=== PATIENT | male | born 1980 ===

== ENCOUNTER 2024-03-26 15:58 | Inpatient (IN) | payer MEDICAID ==
[~2024-03-26] VITALS: Ht 167.6 cm; Wt 112.0 kg
[2024-03-26] MEDS ORDERED: VANCOMYCIN 1GM 200ML H20 (PEG) 200 ML IV ONE (16:40)
[2024-03-26 16:42] LABS: EOSINOPHILS # (AUTO) 0.1 X10'3 (0-0.9); EOSINOPHILS % (AUTO) 1.1 % (0-6); HEMATOCRIT 48.2 % (42.0-52.0); HEMOGLOBIN 15.3 g/dl (14.0-17.9); LYMPHOCYTES # (AUTO) 0.5 X10'3 (1.1-4.8); LYMPHOCYTES % (AUTO) 10.1 % (21-51); MEAN CORPUSCULAR HEMOGLOBIN 30.5 PG (27.0-31.0); MEAN CORPUSCULAR HGB CONC 31.8 g/dL (33.0-36.5); MEAN CORPUSCULAR VOLUME 95.8 FL (78-98); MEAN PLATELET VOLUME 7.6 FL (7.4-10.4); MONOCYTES # (AUTO) 0.5 X10'3 (0-0.9); MONOCYTES % (AUTO) 9.7 % (2-12); NEUTROPHILS # (AUTO) 3.8 X10'3 (1.8-7.7); NEUTROPHILS % (AUTO) 78.1 % (42-75); PLATELET COUNT 178 X10'3 (140-440); RED BLOOD COUNT 5.03 X10'6 (4.70-6.10); RED CELL DISTRIBUTION WIDTH 17.9 % (11.5-14.5); WHITE BLOOD COUNT 4.9 X10'3 (4.5-11.0)
[2024-03-26 16:58] LABS: APTT 27 SECONDS (22-32); D-DIMER 1.42 MG/L FEU (0-0.50); INR 1.3 INR; PROTHROMBIN TIME 13.5 SECONDS (9.0-12.0)
[2024-03-26] MEDS: vancomycin/NS 1 GM ADD-VANTAGE 250 ML X 1 DOSE IV ONE (17:03)
[2024-03-26] MEDS: normal saline 1000ML IV soln IVB ONE (17:03)
[2024-03-26 17:09] LABS: ALANINE AMINOTRANSFERASE 19 U/L (12-78); ALBUMIN/GLOBULIN RATIO 0.6 (1.1-1.5); ALKALINE PHOSPHATASE 60 IU/L (46-116); ANION GAP 5 (8-16); ASPARTATE AMINO TRANSFERASE 28 U/L (10-37); BILIRUBIN,TOTAL 1.2 MG/DL (0.1-1.0); BLOOD UREA NITROGEN 17 MG/DL (7-18); BUN/CREATININE RATIO 12.9 (10.0-20.0); CALCIUM 8.4 MG/DL (8.5-10.1); CHLORIDE 101 MMOL/L (99-107); CREATININE 1.32 MG/DL (0.60-1.10); GLUCOSE 114 MG/DL (70-104); POTASSIUM 4.6 MMOL/L (3.5-5.1); SODIUM 139 MMOL/L (135-145); TOTAL CARBON DIOXIDE 32.7 MMOL/L (24-32); TOTAL PROTEIN 8.3 G/DL (6.4-8.2); eCRCL 66 ML/MIN; eGFR 59 ML/MIN
[2024-03-26] MEDS ORDERED: iohexol 300mg/ml 100ml inj. ONE (17:14)
[2024-03-26 17:17] LABS: C-REACTIVE PROTEIN 3.49 MG/DL (0.0-0.5); CREATINE KINASE 125 U/L (39-308); LIPASE 142 U/L (16-77); MAGNESIUM 2.2 MG/DL (1.5-2.4); PRO BRAIN NATRIURETIC PEPTIDE 530 PG/ML (0-125)
[2024-03-26 18:03] LABS: ABG BASE EXCESS -3.5 mmol/L (-2.0-3.0); ABG HCO3 24.2 mmol/L (21.0-28.0); ABG OXYGEN SATURATION 91.3 % (94.0-98.0); ABG PCO2 (T) 53.4 mmHg (35.0-48.0); ABG PH (T) 7.273 (7.350-7.450); ABG PO2 (T) 67.7 mmHg (83.0-108.0); ALLEN'S TEST POSITIVE; FCOHb 1.8 % (0.5-1.5); FHHb 8.5 % (0.0-5.0); FLOW 6 L/min; FMetHb 0.1 % (0.0-1.5); FO2Hb 89.6 % (94.0-98.0); MODE MASK - SIMPLE; PATIENT TEMPERATURE 36.8; TOTAL HEMOGLOBIN 15.6 G/dl (13.5-17.5)
[2024-03-26] MEDS: CefTRIAXone 2gm/D5W 50ml BAG 50 ML IV ONE (19:32)
[2024-03-26] MEDS ORDERED: mag hydrox/Alum hydrox/simeth 30ml oral suspension PO PRN (19:50)
[2024-03-26] MEDS ORDERED: potassium Cl 40MEQ/1/2NS 520ml 520 ML IV PRN (19:50)
[2024-03-26] MEDS ORDERED: magnesium sulf-water 4G/100mL 100 ML IV PRN (19:50)
[2024-03-26] MEDS ORDERED: magnesium sulf-water 2g/50mL 50 ML IV PRN (19:50)
[2024-03-26] MEDS ORDERED: magnesium hydroxide 30ml (MOM) UD suspension PO PRN (19:50)
[2024-03-26] MEDS ORDERED: magnesium Cl slow-release 64mg tablet PO PRN (19:50)
[2024-03-26] MEDS ORDERED: potassium Cl 20 mEq SR tablet PO PRN ×2 (19:50)
[2024-03-26] MEDS ORDERED: ondansetron/PF 4mg/2ml inj IV PRN (19:50)
[2024-03-26] MEDS: K and/or MAG REPLACEMENT MC SCH (20:00)
[2024-03-26] MEDS ORDERED: ipratropium/albuterol 3ml nebule NEB PRN (20:00)
[2024-03-26] MEDS: furosemide 10 MG/1 ML 10ml inj IV SCH (20:00)
[2024-03-26] MEDS: docusate sod 100mg capsule PO SCH (20:00)
[2024-03-26 20:15] LABS: HEMOGLOBIN A1C 5.7 % (4.5-6.2)
[2024-03-26] MEDS: heparin, porcine 5000 units/ml vial SQ SCH (21:34)
[2024-03-26 23:15] LABS: BILIRUBIN,URINE NEGATIVE (Neg); CLARITY,URINE CLEAR (Clear); COLOR,URINE YELLOW (Yellow); GLUCOSE, URINE NEGATIVE (Neg); KETONES,URINE NEGATIVE (Neg); LEUKOCYTE ESTERASE ,URINE NEGATIVE (Neg); NITRITES, URINE NEGATIVE (Neg); OCCULT BLOOD,URINE TRACE-INTACT (Neg); PH,URINE 5.5 (4.8-8.0); PROTEIN,URINE NEGATIVE (Neg); UROBILINOGEN,URINE 0.2 E.U/dL (0.2-1.0)
[2024-03-26 23:21] LABS: UA COLLECTION TYPE STRAIGHT CATH
[2024-03-26 23:24] LABS: BACTERIA,URINE FEW /HPF (Neg); RBC,URINE 0-2 /HPF (0-2); SQUAMOUS EPITHELIAL CELL,UR FEW /LPF (FEW); WBC,URINE 0-4 /HPF (0-4)
[2024-03-26] MEDS ORDERED: DEXTROSE 15 GM of carb/4 tabs (each vial/BOTTLE has 4 tablets) PO PRN ×2 (23:25)
[2024-03-26] MEDS ORDERED: glucagon, human recombinant 1mg kit SUBCUT PRN (23:25)
[2024-03-26] MEDS ORDERED: dextrose 50%-water 50ml dispensing syringe IV PRN (23:25)
[2024-03-27] VITALS (17 sets, daily range): BP systolic 88–112; BP diastolic 44–61; PULSE 70–96; RESP 16–26; TEMP 97.2–98; O2SAT 93–99
[2024-03-27] MEDS: azithromycin/NS 500mg/250ml 250 ML IV SCH (00:22)
[2024-03-27] MEDS: LORazepam 2 mg/ml vial IV ONE (01:45)
[2024-03-27] MEDS ORDERED: LORazepam 2 mg/ml vial IV PRN (05:30)
[2024-03-27] MEDS: LORazepam 2 mg/ml vial IV PRN (06:36)
[2024-03-27] MEDS: VANCOMYCIN/WATER FOR INJ (PEG) 1.25GM/250 ML IVPB IV ONE (06:56)
[2024-03-27] MEDS: INSULIN LISPRO 100 UNIT/ML INSULN.PEN MULTI-DOSE SQ SCH ×2 (07:00→09:00)
[2024-03-27 07:36] LABS: BASOPHILS % (AUTO) 0.7 % (0-1); EOSINOPHILS % (AUTO) 0.2 % (0-6); HEMOGLOBIN 14.4 g/dl (14.0-17.9); LYMPHOCYTES # (AUTO) 0.4 X10'3 (1.1-4.8); LYMPHOCYTES % (AUTO) 6.8 % (21-51); MEAN CORPUSCULAR HEMOGLOBIN 30.9 PG (27.0-31.0); MEAN CORPUSCULAR HGB CONC 31.9 g/dL (33.0-36.5); MEAN CORPUSCULAR VOLUME 96.8 FL (78-98); MEAN PLATELET VOLUME 7.2 FL (7.4-10.4); MONOCYTES # (AUTO) 0.5 X10'3 (0-0.9); MONOCYTES % (AUTO) 8.2 % (2-12); NEUTROPHILS # (AUTO) 5.4 X10'3 (1.8-7.7); NEUTROPHILS % (AUTO) 84.1 % (42-75); PLATELET COUNT 170 X10'3 (140-440); RED BLOOD COUNT 4.65 X10'6 (4.70-6.10); RED CELL DISTRIBUTION WIDTH 17.8 % (11.5-14.5); WHITE BLOOD COUNT 6.4 X10'3 (4.5-11.0)
[2024-03-27 08:05] LABS: ABG BASE EXCESS -2.7 mmol/L (-2.0-3.0); ABG HCO3 27.7 mmol/L (21.0-28.0); ABG OXYGEN SATURATION 91.9 % (94.0-98.0); ABG PH (T) 7.185 (7.350-7.450); ABG PO2 (T) 70.9 mmHg (83.0-108.0); ALLEN'S TEST POSITIVE; FCOHb 1.6 % (0.5-1.5); FMetHb 0.1 % (0.0-1.5); FO2Hb 90.3 % (94.0-98.0); MODE MASK - BIPAP; RESPIRATORY RATE 16 b/min; TOTAL HEMOGLOBIN 15.3 G/dl (13.5-17.5)
[2024-03-27 08:15] LABS: ALANINE AMINOTRANSFERASE 14 U/L (12-78); ALBUMIN 2.5 G/DL (3.4-5.0); ALBUMIN/GLOBULIN RATIO 0.5 (1.1-1.5); ALKALINE PHOSPHATASE 54 IU/L (46-116); ANION GAP 2 (8-16); ASPARTATE AMINO TRANSFERASE 28 U/L (10-37); BILIRUBIN,TOTAL 0.8 MG/DL (0.1-1.0); BLOOD UREA NITROGEN 14 MG/DL (7-18); BUN/CREATININE RATIO 9.7 (10.0-20.0); CALCIUM 7.9 MG/DL (8.5-10.1); CHLORIDE 104 MMOL/L (99-107); CHOLESTEROL 106 MG/DL (0-200); CREATININE 1.45 MG/DL (0.60-1.10); GLUCOSE 94 MG/DL (70-104); LDL CHOLESTEROL 69 MG/DL (50-100); POTASSIUM 4.6 MMOL/L (3.5-5.1); SODIUM 140 MMOL/L (135-145); TOTAL CARBON DIOXIDE 33.9 MMOL/L (24-32); TOTAL PROTEIN 7.3 G/DL (6.4-8.2); TRIGLYCERIDES 69 MG/DL (20-135); eCRCL 60 ML/MIN; eGFR 53 ML/MIN
[2024-03-27] MEDS: furosemide 40mg/4ml inj IV SCH (08:54)
[2024-03-27] MEDS: CefTRIAXone/D5W-Rocephin 1gm 50 ML IV SCH (08:55)
[2024-03-27 09:51] LABS: CHOL/HDL RATIO 3.4 (0.00-4.99); HDL CHOLESTEROL 31 MG/DL (35-60)
[2024-03-27 11:49] LABS: BFSOURCE RIGHT PLEURAL FLD; GLUCOSE,BODY FLUID 99 MG/DL; LDH,BODY FLUID 75 U/L; PLEURAL FLUID PH 7.275 (7.63-7.65); TOTAL PROTEIN,BODY FLUID 4.1 G/DL
[2024-03-27 12:23] LABS: BF RBC COUNT 14850 /CU MM; BF WBC COUNT 550 /CU MM (0-1000); BFAPPEAR CLOUDY; BFCOLOR RED; BFSOURCE RIGHT PLEURAL FLD; BFVOLUME 55 ML; NEUTROPHILS,BODY FLUID 32 %
[2024-03-27 12:24] LABS: BF MESOTHELIAL CELLS MODERATE; LYMPHOCYTES,BODY FLUID 40 %; MONOCYTES,BODY FLUID 28 %
[2024-03-27 16:44] LABS: ABG BASE EXCESS 1.6 mmol/L (-2.0-3.0); ABG HCO3 31.1 mmol/L (21.0-28.0); ABG OXYGEN SATURATION 92.5 % (94.0-98.0); ABG PCO2 (T) 70.6 mmHg (35.0-48.0); ABG PH (T) 7.262 (7.350-7.450); ABG PO2 (T) 67.9 mmHg (83.0-108.0); ALLEN'S TEST POSITIVE; FCOHb 2.2 % (0.5-1.5); FHHb 7.3 % (0.0-5.0); FMetHb 0.3 % (0.0-1.5); FO2Hb 90.2 % (94.0-98.0); MODE MASK - BIPAP; RESPIRATORY RATE 22 b/min; TOTAL HEMOGLOBIN 15.9 G/dl (13.5-17.5)
[2024-03-27] MEDS: ringers solution, lacted 1,000 ML IV ONE (17:27)
[2024-03-27 18:06] LABS: PRO BRAIN NATRIURETIC PEPTIDE 385 PG/ML (0-125)
[2024-03-27] MEDS: VANCOMYCIN/WATER FOR INJ (PEG) 1.25GM/250 ML IVPB IV SCH (19:36)
[2024-03-27] MEDS: nystatin 15 GM powder TP SCH (19:36)
[2024-03-27 20:57] LABS: LACTATE DEHYDROGENASE 205 U/L (85-227)
[2024-03-27] MEDS: insulin glargine (Lantus) pen - multi-dose SQ SCH (21:00)
[2024-03-27] MEDS: dextrose 50%-water 50ml dispensing syringe IV PRN (21:06)
[2024-03-28] VITALS (17 sets, daily range): BP systolic 90–117; BP diastolic 39–76; PULSE 70–101; RESP 16–32; TEMP 97.1–98.1; O2SAT 92–98
[2024-03-28 06:09] LABS: BASOPHILS # (AUTO) 0.1 X10'3 (0-0.2); EOSINOPHILS # (AUTO) 0.1 X10'3 (0-0.9); HEMATOCRIT 45.7 % (42.0-52.0); HEMOGLOBIN 14.6 g/dl (14.0-17.9); LYMPHOCYTES # (AUTO) 0.5 X10'3 (1.1-4.8); LYMPHOCYTES % (AUTO) 8.3 % (21-51); MEAN CORPUSCULAR HEMOGLOBIN 30.6 PG (27.0-31.0); MEAN CORPUSCULAR VOLUME 95.6 FL (78-98); MEAN PLATELET VOLUME 7.8 FL (7.4-10.4); MONOCYTES # (AUTO) 0.5 X10'3 (0-0.9); MONOCYTES % (AUTO) 8.1 % (2-12); NEUTROPHILS # (AUTO) 5.1 X10'3 (1.8-7.7); NEUTROPHILS % (AUTO) 81.6 % (42-75); PLATELET COUNT 162 X10'3 (140-440); RED BLOOD COUNT 4.78 X10'6 (4.70-6.10); RED CELL DISTRIBUTION WIDTH 17.5 % (11.5-14.5); WHITE BLOOD COUNT 6.2 X10'3 (4.5-11.0)
[2024-03-28 06:18] LABS: ALANINE AMINOTRANSFERASE 13 U/L (12-78); ALBUMIN 2.3 G/DL (3.4-5.0); ALBUMIN/GLOBULIN RATIO 0.5 (1.1-1.5); ALKALINE PHOSPHATASE 53 IU/L (46-116); ANION GAP 3 (8-16); ASPARTATE AMINO TRANSFERASE 16 U/L (10-37); BILIRUBIN,TOTAL 0.8 MG/DL (0.1-1.0); BLOOD UREA NITROGEN 13 MG/DL (7-18); BUN/CREATININE RATIO 10.2 (10.0-20.0); CALCIUM 7.9 MG/DL (8.5-10.1); CHLORIDE 105 MMOL/L (99-107); CREATININE 1.28 MG/DL (0.60-1.10); GLUCOSE 81 MG/DL (70-104); MAGNESIUM 1.9 MG/DL (1.5-2.4); SODIUM 144 MMOL/L (135-145); TOTAL CARBON DIOXIDE 35.7 MMOL/L (24-32); TOTAL PROTEIN 6.8 G/DL (6.4-8.2); eCRCL 68 ML/MIN; eGFR 62 ML/MIN
[2024-03-28 07:46] LABS: ABG BASE EXCESS 1.3 mmol/L (-2.0-3.0); ABG HCO3 28.4 mmol/L (21.0-28.0); ABG OXYGEN SATURATION 96.2 % (94.0-98.0); ABG PCO2 (T) 54.2 mmHg (35.0-48.0); ABG PH (T) 7.337 (7.350-7.450); ABG PO2 (T) 86.9 mmHg (83.0-108.0); ALLEN'S TEST POSITIVE; FCOHb 1.6 % (0.5-1.5); FHHb 3.7 % (0.0-5.0); FMetHb 0.1 % (0.0-1.5); FO2Hb 94.6 % (94.0-98.0); MODE MASK - BIPAP; RESPIRATORY RATE 26 b/min; TOTAL HEMOGLOBIN 15.5 G/dl (13.5-17.5)
[2024-03-28] MEDS ORDERED: morphine 4 MG/ML inj SYRINge IV PRN (13:10)
[2024-03-28] MEDS ORDERED: morphine 2 MG/ML inj. syringe IV PRN (13:10)
[2024-03-28] MEDS: morphine 4 MG/ML inj SYRINge ONE (13:19)
[2024-03-28] MEDS: diazepam inj 5 MG/ML inj. IV PRN (16:39)
[2024-03-28] MEDS: VANCOMYCIN LEVEL IV ONE (18:30)
[2024-03-29] VITALS (14 sets, daily range): BP systolic 94–125; BP diastolic 51–61; PULSE 65–97; RESP 19–32; TEMP 97.6–98.1; O2SAT 90–98
[2024-03-29 08:46] LABS: BASOPHILS # (AUTO) 0.1 X10'3 (0-0.2); EOSINOPHILS # (AUTO) 0.1 X10'3 (0-0.9); EOSINOPHILS % (AUTO) 1.4 % (0-6); HEMATOCRIT 47.6 % (42.0-52.0); HEMOGLOBIN 15.1 g/dl (14.0-17.9); LYMPHOCYTES # (AUTO) 0.4 X10'3 (1.1-4.8); LYMPHOCYTES % (AUTO) 6.9 % (21-51); MEAN CORPUSCULAR HGB CONC 31.6 g/dL (33.0-36.5); MEAN PLATELET VOLUME 7.9 FL (7.4-10.4); MONOCYTES # (AUTO) 0.4 X10'3 (0-0.9); MONOCYTES % (AUTO) 6.2 % (2-12); NEUTROPHILS # (AUTO) 5.2 X10'3 (1.8-7.7); NEUTROPHILS % (AUTO) 84.5 % (42-75); PLATELET COUNT 168 X10'3 (140-440); RED BLOOD COUNT 5.02 X10'6 (4.70-6.10); RED CELL DISTRIBUTION WIDTH 17.8 % (11.5-14.5); WHITE BLOOD COUNT 6.1 X10'3 (4.5-11.0)
[2024-03-29 09:01] LABS: ALANINE AMINOTRANSFERASE 11 U/L (12-78); ALBUMIN 2.3 G/DL (3.4-5.0); ALBUMIN/GLOBULIN RATIO 0.5 (1.1-1.5); ALKALINE PHOSPHATASE 51 IU/L (46-116); ANION GAP 5 (8-16); ASPARTATE AMINO TRANSFERASE 28 U/L (10-37); BLOOD UREA NITROGEN 13 MG/DL (7-18); BUN/CREATININE RATIO 11.5 (10.0-20.0); CALCIUM 8.3 MG/DL (8.5-10.1); CHLORIDE 102 MMOL/L (99-107); CREATININE 1.13 MG/DL (0.60-1.10); GLUCOSE 76 MG/DL (70-104); MAGNESIUM 1.7 MG/DL (1.5-2.4); SODIUM 141 MMOL/L (135-145); TOTAL CARBON DIOXIDE 34.5 MMOL/L (24-32); TOTAL PROTEIN 7.3 G/DL (6.4-8.2); eCRCL 77 ML/MIN; eGFR 71 ML/MIN
[2024-03-29 09:02] LABS: POTASSIUM 3.7 MMOL/L (3.5-5.1)
[2024-03-29] MEDS ORDERED: furosemide 40mg/4ml inj IV ONE (19:30)
[2024-03-29 20:36] LABS: OSMOLALITY 305 MOSM/K (280-300)
[2024-03-29 20:42] LABS: PRO BRAIN NATRIURETIC PEPTIDE 156 PG/ML (0-125)
[2024-03-29] MEDS: VANCOMYCIN/WATER FOR INJ (PEG) 750MG/150 ML IVPB IV SCH (21:27)
[2024-03-29 23:09] LABS: BILIRUBIN,URINE NEGATIVE (Neg); CLARITY,URINE CLEAR (Clear); COLOR,URINE YELLOW (Yellow); GLUCOSE, URINE NEGATIVE (Neg); KETONES,URINE 15 mg/dl (Neg); LEUKOCYTE ESTERASE ,URINE NEGATIVE (Neg); NITRITES, URINE NEGATIVE (Neg); OCCULT BLOOD,URINE LARGE (Neg); PROTEIN,URINE TRACE mg/dl (Neg); UROBILINOGEN,URINE 0.2 E.U/dL (0.2-1.0)
[2024-03-29 23:14] LABS: BACTERIA,URINE NONE SEEN /HPF (Neg); RBC,URINE TNTC /HPF (0-2); SQUAMOUS EPITHELIAL CELL,UR NONE SEEN /LPF (FEW); UA COLLECTION TYPE FOLEY CATH; WBC,URINE NONE SEEN /HPF (0-4)
[2024-03-30] VITALS (15 sets, daily range): BP systolic 113–131; BP diastolic 49–67; PULSE 52–97; RESP 13–28; TEMP 97.3–99.6; O2SAT 87–98
[2024-03-30 07:19] LABS: BASOPHILS # (AUTO) 0.1 X10'3 (0-0.2); EOSINOPHILS # (AUTO) 0.1 X10'3 (0-0.9); EOSINOPHILS % (AUTO) 2.1 % (0-6); HEMATOCRIT 47.8 % (42.0-52.0); HEMOGLOBIN 15.4 g/dl (14.0-17.9); LYMPHOCYTES # (AUTO) 0.5 X10'3 (1.1-4.8); LYMPHOCYTES % (AUTO) 8.2 % (21-51); MEAN CORPUSCULAR HEMOGLOBIN 30.2 PG (27.0-31.0); MEAN CORPUSCULAR HGB CONC 32.2 g/dL (33.0-36.5); MEAN PLATELET VOLUME 7.9 FL (7.4-10.4); MONOCYTES # (AUTO) 0.5 X10'3 (0-0.9); MONOCYTES % (AUTO) 7.7 % (2-12); NEUTROPHILS # (AUTO) 4.9 X10'3 (1.8-7.7); PLATELET COUNT 197 X10'3 (140-440); RED BLOOD COUNT 5.09 X10'6 (4.70-6.10); RED CELL DISTRIBUTION WIDTH 17.3 % (11.5-14.5)
[2024-03-30 07:57] LABS: ALANINE AMINOTRANSFERASE 10 U/L (12-78); ALBUMIN 2.4 G/DL (3.4-5.0); ALBUMIN/GLOBULIN RATIO 0.4 (1.1-1.5); ALKALINE PHOSPHATASE 54 IU/L (46-116); ANION GAP 10 (8-16); ASPARTATE AMINO TRANSFERASE 29 U/L (10-37); BILIRUBIN,TOTAL 1.2 MG/DL (0.1-1.0); BLOOD UREA NITROGEN 13 MG/DL (7-18); BUN/CREATININE RATIO 11.9 (10.0-20.0); CALCIUM 8.6 MG/DL (8.5-10.1); CHLORIDE 99 MMOL/L (99-107); CREATININE 1.09 MG/DL (0.60-1.10); GLUCOSE 81 MG/DL (70-104); MAGNESIUM 1.7 MG/DL (1.5-2.4); SODIUM 140 MMOL/L (135-145); TOTAL CARBON DIOXIDE 31.2 MMOL/L (24-32); TOTAL PROTEIN 7.8 G/DL (6.4-8.2); eCRCL 80 ML/MIN; eGFR 74 ML/MIN
[2024-03-30 08:06] LABS: POTASSIUM 3.5 MMOL/L (3.5-5.1)
[2024-03-30] MEDS: azithromycin 250mg tablet PO SCH (09:35)
[2024-03-30] MEDS ORDERED: magnesium sulf-water 2g/50mL 50 ML IV PRN (14:40)
[2024-03-30] MEDS ORDERED: magnesium Cl slow-release 64mg tablet PO PRN (14:40)
[2024-03-30] MEDS ORDERED: magnesium sulf-water 4G/100mL 100 ML IV PRN (14:40)
[2024-03-30] MEDS ORDERED: K and/or MAG REPLACEMENT MC SCH (20:00)
[2024-03-31] VITALS (14 sets, daily range): BP systolic 99–119; BP diastolic 52–80; PULSE 65–89; RESP 16–30; TEMP 97.5–98.6; O2SAT 89–97
[2024-03-31 07:03] LABS: BASOPHILS # (AUTO) 0.1 X10'3 (0-0.2); BASOPHILS % (AUTO) 1.1 % (0-1); EOSINOPHILS # (AUTO) 0.2 X10'3 (0-0.9); EOSINOPHILS % (AUTO) 2.9 % (0-6); HEMATOCRIT 50.3 % (42.0-52.0); HEMOGLOBIN 16.3 g/dl (14.0-17.9); LYMPHOCYTES # (AUTO) 0.6 X10'3 (1.1-4.8); LYMPHOCYTES % (AUTO) 9.1 % (21-51); MEAN CORPUSCULAR HEMOGLOBIN 30.4 PG (27.0-31.0); MEAN CORPUSCULAR HGB CONC 32.4 g/dL (33.0-36.5); MEAN CORPUSCULAR VOLUME 93.9 FL (78-98); MEAN PLATELET VOLUME 7.5 FL (7.4-10.4); MONOCYTES # (AUTO) 0.6 X10'3 (0-0.9); MONOCYTES % (AUTO) 9.3 % (2-12); NEUTROPHILS % (AUTO) 77.6 % (42-75); PLATELET COUNT 188 X10'3 (140-440); RED BLOOD COUNT 5.36 X10'6 (4.70-6.10); RED CELL DISTRIBUTION WIDTH 17.3 % (11.5-14.5); WHITE BLOOD COUNT 6.5 X10'3 (4.5-11.0)
[2024-03-31] MEDS ORDERED: VANCOMYCIN LEVEL IV ONE (07:30)
[2024-03-31 07:33] LABS: ALANINE AMINOTRANSFERASE 10 U/L (12-78); ALBUMIN 2.7 G/DL (3.4-5.0); ALBUMIN/GLOBULIN RATIO 0.4 (1.1-1.5); ALKALINE PHOSPHATASE 58 IU/L (46-116); ANION GAP 6 (8-16); ASPARTATE AMINO TRANSFERASE 31 U/L (10-37); BILIRUBIN,TOTAL 1.1 MG/DL (0.1-1.0); BLOOD UREA NITROGEN 14 MG/DL (7-18); BUN/CREATININE RATIO 12.5 (10.0-20.0); CALCIUM 8.9 MG/DL (8.5-10.1); CHLORIDE 98 MMOL/L (99-107); CREATININE 1.12 MG/DL (0.60-1.10); GLUCOSE 104 MG/DL (70-104); POTASSIUM 3.2 MMOL/L (3.5-5.1); SODIUM 140 MMOL/L (135-145); TOTAL CARBON DIOXIDE 35.7 MMOL/L (24-32); TOTAL PROTEIN 8.8 G/DL (6.4-8.2); eCRCL 78 ML/MIN; eGFR 72 ML/MIN
[2024-03-31] MEDS: potassium Cl 20 mEq SR tablet PO PRN ×2 (08:43→21:38)
[2024-03-31] MEDS: acetaminophen 325mg tablet PO PRN (11:24)
[2024-03-31] MEDS: furosemide 40mg/4ml inj IV ONE (15:41)
[2024-03-31] MEDS ORDERED: lactose-reduced food (Ensure Enlive) - 237ml bottle PO SCH (17:30)
[2024-03-31] MEDS: furosemide 10 MG/1 ML 10ml inj IV SCH (18:25)
[2024-03-31] MEDS: acetaZOLAMIDE IV 500mg inj IV SCH (21:17)
[2024-04-01] VITALS (12 sets, daily range): BP systolic 103–133; BP diastolic 52–68; PULSE 77–99; RESP 17–25; TEMP 96.2–98.6; O2SAT 90–99
[2024-04-01] MEDS: morphine 2 MG/ML inj. syringe IV PRN (08:11)
[2024-04-01] MEDS: potassium Cl 40MEQ/1/2NS 520ml 520 ML IV PRN (08:34)
[2024-04-01] MEDS: morphine 4 MG/ML inj SYRINge IV PRN (14:43)
[2024-04-02] VITALS (13 sets, daily range): BP systolic 114–139; BP diastolic 56–68; PULSE 76–118; RESP 17–22; TEMP 96.6–98.8; O2SAT 90–97
[2024-04-02 07:33] LABS: BASOPHILS # (AUTO) 0.1 X10'3 (0-0.2); BASOPHILS % (AUTO) 1.6 % (0-1); EOSINOPHILS # (AUTO) 0.3 X10'3 (0-0.9); HEMATOCRIT 53.7 % (42.0-52.0); HEMOGLOBIN 17.6 g/dl (14.0-17.9); LYMPHOCYTES # (AUTO) 0.6 X10'3 (1.1-4.8); LYMPHOCYTES % (AUTO) 8.6 % (21-51); MEAN CORPUSCULAR HEMOGLOBIN 30.5 PG (27.0-31.0); MEAN CORPUSCULAR HGB CONC 32.8 g/dL (33.0-36.5); MONOCYTES # (AUTO) 0.5 X10'3 (0-0.9); MONOCYTES % (AUTO) 7.5 % (2-12); NEUTROPHILS # (AUTO) 5.1 X10'3 (1.8-7.7); NEUTROPHILS % (AUTO) 77.3 % (42-75); PLATELET COUNT 207 X10'3 (140-440); RED BLOOD COUNT 5.77 X10'6 (4.70-6.10); RED CELL DISTRIBUTION WIDTH 17.3 % (11.5-14.5); WHITE BLOOD COUNT 6.6 X10'3 (4.5-11.0)
[2024-04-02 09:28] LABS: ALBUMIN 2.7 G/DL (3.4-5.0); ANION GAP 9 (8-16); BLOOD UREA NITROGEN 23 MG/DL (7-18); BUN/CREATININE RATIO 17.7 (10.0-20.0); CALCIUM 9.3 MG/DL (8.5-10.1); CHLORIDE 98 MMOL/L (99-107); GLUCOSE 110 MG/DL (70-104); POTASSIUM 3.6 MMOL/L (3.5-5.1); SODIUM 139 MMOL/L (135-145); TOTAL CARBON DIOXIDE 31.7 MMOL/L (24-32); eCRCL 67 ML/MIN; eGFR 61 ML/MIN
[2024-04-02 14:25] LABS: ABG HCO3 36.1 mmol/L (21.0-28.0); ABG OXYGEN SATURATION 94.5 % (94.0-98.0); ABG PCO2 (T) 59.1 mmHg (35.0-48.0); ABG PH (T) 7.401 (7.350-7.450); ABG PO2 (T) 72.4 mmHg (83.0-108.0); ALLEN'S TEST POSITIVE; FCOHb 0.7 % (0.5-1.5); FHHb 5.5 % (0.0-5.0); FLOW 5 L/min; FMetHb 0.2 % (0.0-1.5); FO2Hb 93.6 % (94.0-98.0); MODE NC; PATIENT TEMPERATURE 36.4; TOTAL HEMOGLOBIN 19.5 G/dl (13.5-17.5)
[2024-04-03] VITALS (12 sets, daily range): BP systolic 95–127; BP diastolic 55–87; PULSE 87–103; RESP 16–22; TEMP 97.3–98; O2SAT 91–96
[2024-04-03] MEDS: erythromycin ophthalmic ointment 1gm tube EACHEYE SCH (03:09)
[2024-04-03 13:23] LABS: BASOPHILS # (AUTO) 0.1 X10'3 (0-0.2); EOSINOPHILS # (AUTO) 0.3 X10'3 (0-0.9); LYMPHOCYTES # (AUTO) 0.9 X10'3 (1.1-4.8); LYMPHOCYTES % (AUTO) 11.9 % (21-51); MEAN CORPUSCULAR HGB CONC 33.1 g/dL (33.0-36.5); MONOCYTES # (AUTO) 0.9 X10'3 (0-0.9); NEUTROPHILS # (AUTO) 5.4 X10'3 (1.8-7.7)
[2024-04-03 13:25] LABS: BASOPHILS % (AUTO) 1.8 % (0-1); EOSINOPHILS % (AUTO) 4.4 % (0-6); HEMATOCRIT 57.2 % (42.0-52.0); MEAN CORPUSCULAR HEMOGLOBIN 30.9 PG (27.0-31.0); MEAN CORPUSCULAR VOLUME 93.5 FL (78-98); MEAN PLATELET VOLUME 7.8 FL (7.4-10.4); MONOCYTES % (AUTO) 12.2 % (2-12); NEUTROPHILS % (AUTO) 69.7 % (42-75); PLATELET COUNT 196 X10'3 (140-440); RED BLOOD COUNT 6.12 X10'6 (4.70-6.10); RED CELL DISTRIBUTION WIDTH 16.9 % (11.5-14.5); WHITE BLOOD COUNT 7.7 X10'3 (4.5-11.0)
[2024-04-03 13:33] LABS: HEMOGLOBIN 18.9 g/dl (14.0-17.9)
[2024-04-03 13:39] LABS: ALBUMIN 2.9 G/DL (3.4-5.0); ANION GAP 6 (8-16); BLOOD UREA NITROGEN 35 MG/DL (7-18); BUN/CREATININE RATIO 23.8 (10.0-20.0); CALCIUM 9.7 MG/DL (8.5-10.1); CHLORIDE 98 MMOL/L (99-107); CREATININE 1.47 MG/DL (0.60-1.10); GLUCOSE 116 MG/DL (70-104); MAGNESIUM 2.5 MG/DL (1.5-2.4); PHOSPHORUS 5.4 MG/DL (2.3-4.5); POTASSIUM 3.8 MMOL/L (3.5-5.1); SODIUM 139 MMOL/L (135-145); TOTAL CARBON DIOXIDE 34.6 MMOL/L (24-32); eCRCL 59 ML/MIN; eGFR 53 ML/MIN
[2024-04-03] MEDS: polymyxin B sulf/tmp ophth drops 10ml EACHEYE SCH ×2 (14:56→23:46)
[2024-04-03] MEDS: polymyxin B sulf/tmp ophth drops 10ml EACHEYE ONE (15:42)
[2024-04-03 15:57] LABS: PLATELET ESTIMATE NORMAL; TOTAL CELLS COUNTED 100
[2024-04-03] MEDS: furosemide 40mg/4ml inj IV SCH (23:48)
[2024-04-04] VITALS (10 sets, daily range): BP systolic 98–150; BP diastolic 59–77; PULSE 72–103; RESP 16–20; TEMP 97.4–97.9; O2SAT 92–97
[2024-04-04] MEDS: NUT.TX.IMP.RENAL FXN,LAC-REDUC (Nepro) 237 ML VANILLA PO SCH (07:30)
[2024-04-04 11:36] LABS: BASOPHILS # (AUTO) 0.1 X10'3 (0-0.2); EOSINOPHILS # (AUTO) 0.3 X10'3 (0-0.9); EOSINOPHILS % (AUTO) 4.6 % (0-6); LYMPHOCYTES # (AUTO) 0.7 X10'3 (1.1-4.8); MONOCYTES # (AUTO) 0.6 X10'3 (0-0.9)
[2024-04-04 11:38] LABS: BASOPHILS % (AUTO) 2.3 % (0-1); HEMATOCRIT 58.1 % (42.0-52.0); LYMPHOCYTES % (AUTO) 12.1 % (21-51); MEAN CORPUSCULAR HEMOGLOBIN 30.4 PG (27.0-31.0); MEAN CORPUSCULAR HGB CONC 32.8 g/dL (33.0-36.5); MEAN CORPUSCULAR VOLUME 92.8 FL (78-98); MEAN PLATELET VOLUME 8.6 FL (7.4-10.4); MONOCYTES % (AUTO) 9.9 % (2-12); NEUTROPHILS # (AUTO) 4.3 X10'3 (1.8-7.7); NEUTROPHILS % (AUTO) 71.1 % (42-75); PLATELET COUNT 225 X10'3 (140-440); RED BLOOD COUNT 6.26 X10'6 (4.70-6.10)
[2024-04-04 11:43] LABS: ALBUMIN 2.9 G/DL (3.4-5.0); ANION GAP 8 (8-16); BLOOD UREA NITROGEN 37 MG/DL (7-18); BUN/CREATININE RATIO 28.7 (10.0-20.0); CALCIUM 9.4 MG/DL (8.5-10.1); CHLORIDE 97 MMOL/L (99-107); CREATININE 1.29 MG/DL (0.60-1.10); GLUCOSE 131 MG/DL (70-104); SODIUM 138 MMOL/L (135-145); TOTAL CARBON DIOXIDE 33.3 MMOL/L (24-32); eCRCL 67 ML/MIN; eGFR 61 ML/MIN
[2024-04-04] MEDS ORDERED: magnesium sulf-water 4G/100mL 100 ML IV PRN (12:05)
[2024-04-04] MEDS ORDERED: magnesium sulf-water 2g/50mL 50 ML IV PRN (12:05)
[2024-04-04 12:30] LABS: TOTAL CELLS COUNTED 100
[2024-04-04 12:31] LABS: ANISOCYTOSIS 1+; PLATELET ESTIMATE NORMAL
[2024-04-04] MEDS: potassium Cl 40MEQ/1/2NS 520ml 520 ML IV PRN (13:42)
[2024-04-05] VITALS (9 sets, daily range): BP systolic 90–130; BP diastolic 49–73; PULSE 81–100; RESP 13–22; TEMP 98.3–99.5; O2SAT 93–95
[2024-04-05] MEDS ORDERED: FURO20TA4 PO (11:41)
[2024-04-05] MEDS ORDERED: POTA-207 PO (11:41)
[2024-04-05] MEDS: potassium Cl 20 mEq SR tablet PO SCH (18:02)
[2024-04-06 02:00] VITALS: BP 112/54; PULSE 80; RESP 18; TEMP 98.1; O2SAT 94
[2024-04-06 04:00] VITALS: BP 125/77; PULSE 86; RESP 18; TEMP 97.7; O2SAT 96
[2024-04-06 06:30] VITALS: BP 112/54; PULSE 70; RESP 22; TEMP 98.1; O2SAT 97
[2024-04-06] MEDS: furosemide 40mg/4ml inj IV SCH (09:52)
== END 2024-04-06 16:00 | disposition home or self-care (01) | DRG 137 ==
LOC: ER 15:59 → ED HOLD 19:56 → PCU 3S 03-27 12:04
PROVIDERS: ADMIT Internal Medicine Sleep Medicine; ATTEND Family Medicine
PROC: 0W993ZX Drainage of Right Pleural Cavity, Percutaneous Approach, Diagnostic (ICD-10-PCS; 2024-03-27)
PROC: 5A09357 Assistance with Respiratory Ventilation, Less than 24 Consecutive Hours, Continuous Positive Airway Pressure (ICD-10-PCS; 2024-03-27)
PROC: 5A09357 Assistance with Respiratory Ventilation, Less than 24 Consecutive Hours, Continuous Positive Airway Pressure (ICD-10-PCS; 2024-03-28)
PROC: 5A0935A Assistance with Respiratory Ventilation, Less than 24 Consecutive Hours, High Flow/Velocity Cannula (ICD-10-PCS; 2024-03-28)
PROC: 5A09357 Assistance with Respiratory Ventilation, Less than 24 Consecutive Hours, Continuous Positive Airway Pressure (ICD-10-PCS; 2024-03-29)
PROC: 5A09357 Assistance with Respiratory Ventilation, Less than 24 Consecutive Hours, Continuous Positive Airway Pressure (ICD-10-PCS; 2024-03-30)
PROC: 5A0935A Assistance with Respiratory Ventilation, Less than 24 Consecutive Hours, High Flow/Velocity Cannula (ICD-10-PCS; 2024-03-30)
PROC: 5A09357 Assistance with Respiratory Ventilation, Less than 24 Consecutive Hours, Continuous Positive Airway Pressure (ICD-10-PCS; 2024-03-31)
PROC: 5A0935A Assistance with Respiratory Ventilation, Less than 24 Consecutive Hours, High Flow/Velocity Cannula (ICD-10-PCS; 2024-03-31)
PROC: CB121ZZ Planar Nuclear Medicine Imaging of Lungs and Bronchi using Technetium 99m (Tc-99m) (ICD-10-PCS; principal; 2024-04-01)
PROC: 05HF33Z Insertion of Infusion Device into Left Cephalic Vein, Percutaneous Approach (ICD-10-PCS; 2024-04-01)
PROC: 05HF33Z Insertion of Infusion Device into Left Cephalic Vein, Percutaneous Approach (ICD-10-PCS; 2024-04-01)
PROC: B54NZZA Ultrasonography of Left Upper Extremity Veins, Guidance (ICD-10-PCS; 2024-04-01)
PROC: 5A0935A Assistance with Respiratory Ventilation, Less than 24 Consecutive Hours, High Flow/Velocity Cannula (ICD-10-PCS; 2024-04-01)
PROC: 5A0935A Assistance with Respiratory Ventilation, Less than 24 Consecutive Hours, High Flow/Velocity Cannula (ICD-10-PCS; 2024-04-02)
PROC: 5A0935A Assistance with Respiratory Ventilation, Less than 24 Consecutive Hours, High Flow/Velocity Cannula (ICD-10-PCS; 2024-04-03)
DX: J15.69 Pneumonia due to other Gram-negative bacteria (principal); J96.01 Acute respiratory failure with hypoxia; G93.41 Metabolic encephalopathy; K85.90 Acute pancreatitis without necrosis or infection, unspecified; N17.9 Acute kidney failure, unspecified; Z20.822 Contact with and (suspected) exposure to COVID-19; E87.29 Other acidosis; I50.30 Unspecified diastolic (congestive) heart failure; Q90.9 Down syndrome, unspecified; J15.9 Unspecified bacterial pneumonia; J91.8 Pleural effusion in other conditions classified elsewhere; L03.311 Cellulitis of abdominal wall; E11.9 Type 2 diabetes mellitus without complications; L03.314 Cellulitis of groin; G47.33 Obstructive sleep apnea (adult) (pediatric)
CPT/HCPCS: 32555; 36410; 36415; 36600; 71045; 71260; 74177; 76937; 78582; 80048; 80053; 80061; 80202; 81001; 82550; 82800; 82803; 82945; 82948; 83036; 83605; 83615; 83690; 83735; 83874; 83880; 83930; 83986; 84100; 84132; 84145; 84157; 84484; 85007; 85018; 85025; 85379; 85610; 85730; 86140; 87040; 87070; 87075; 87502; 87503; 87811; 89051; 92508; 92616; 93306; 94660; 94760; 97116; 97161; 97530; 99291; A4314; A4338; A4340; A4615; A4624; A4628; A5200; A6212; A6213; A6250; A6449; A6590; A9539; C1751; C1758; G0378; J0456; J0696; J1120; J1644; J1815; J1940; J2060; J2270; J3360; J3370; J3372; J3480; J3490; J7030; J7040; J7120; Q9967